=== PATIENT | male | born 1985 | race Caucasian/White ===

== ENCOUNTER 2018-05-10 12:57 | Emergency (ER) | payer SELFPAY ==
[2018-05-10 13:30] VITALS: BP 131/80
--- NOTE | 2018-05-10 14:35 | ER Document Report ---
ED Medical Screen (RME) - General Chief Complaint: Neck Swelling Stated Complaint: JAW/NECK PAIN Time Seen by Provider: 05/10/18 14:31 Notes: 33-year-old male presents to the emergency department sent over from the urgent care for concern for an infection in his jaw. He states it started yesterday with a throbbing headache and then his right lower jaw went numb from midline over. The numbness started at 1800 last night but is slightly improved. He complains of chills and "clamm feeling ". He has full range of motion in his neck and is able to open his jaw all the way. Patient is a 1 pack/day smoker. I have greeted and performed a rapid initial assessment of this patient. A comprehensive ED assessment and evaluation of the patient, analysis of test results and completion of medical decision making process will be conducted by an additional ED providers. - Related Data Allergies/Adverse Reactions: codeine Allergy (Verified 05/10/18 13:05) Penicillins Allergy (Verified 05/10/18 13:05) mycins Allergy (Uncoded 05/10/18 13:05) Physical Exam - Vital signs Vitals: Temp Pulse Resp BP Pulse Ox 98.6 F 81 14 131/80 H 100 05/10/18 13:29 05/10/18 13:29 05/10/18 13:05/10/18 13:29 05/10/18 13:29 - HEENT Head: Other - Mild swelling area over right anterior body of the jaw, no purulent discharge from the gingiva, no evidence of parotid duct discharge, no erythema Course - Vital Signs Vital signs: Temp Pulse Resp BP Pulse Ox 98.6 F 81 14 131/80 H 100 05/10/18 13:29 05/10/18 13:29 05/10/18 13:29 05/10/18 13:29 05/10/18 13:29
[2018-05-10 15:36] LABS: ABSOLUTE EOSINOPHILS # (AUTO) 0.1 10^3/uL (0.0-0.6); ABSOLUTE LYMPHOCYTES (AUTO) 1.7 10^3/uL (0.5-4.7); ABSOLUTE NEUT (AUTO) 8.3 10^3/uL (1.7-8.2); BASOPHILS % (AUTO) 0.4 % (0-2); EOSINOPHILS % (AUTO) 0.7 % (0-6); HEMATOCRIT 49.8 % (37.9-51.0); HEMOGLOBIN 17.3 g/dL (13.5-17.0); LYMPHOCYTES % (AUTO) 15.2 % (13-45); MEAN CORPUSCULAR HEMOGLOBIN 32.7 pg (27.0-33.4); MEAN CORPUSCULAR HGB CONC 34.7 g/dL (32.0-36.0); MEAN CORPUSCULAR VOLUME 95 fl (80-97); MONOCYTES % (AUTO) 8.8 % (3-13); PLATELET COUNT 291 10^3/uL (150-450); RED BLOOD COUNT 5.27 10^6/uL (4.35-5.55); RED CELL DISTRIBUTION WIDTH 13.5 % (11.5-14.0); SEGMENTED NEUTROPHILS % (AUTO) 74.9 % (42-78); TOTAL CELLS COUNTED % (AUTO) 100 %; WHITE BLOOD COUNT 11.1 10^3/uL (4.0-10.5)
[2018-05-10 15:50] LABS: ANION GAP 10 (5-19); BLOOD UREA NITROGEN 11 mg/dL (7-20); CALCIUM 9.8 mg/dL (8.4-10.2); CARBON DIOXIDE 32 mmol/L (22-30); CHLORIDE 101 mmol/L (98-107); GLUCOSE 86 mg/dL (75-110); POTASSIUM 4.4 mmol/L (3.6-5.0); SODIUM 143.1 mmol/L (137-145)
--- NOTE | 2018-05-10 18:18 | RADIOLOGY REPORT (SQ) ---
EXAM DESCRIPTION: CT SOFT TISSUE NECK WITH COMPLETED DATE/TIME: 05/10/2018 6:04 pm REASON FOR STUDY: concern for abscess R mandible COMPARISON: None. TECHNIQUE: Post IV contrasted scanning from skull base through lung apices with review of bone, soft tissue and lung windows. Reconstructed coronal and sagittal MPR images reviewed. All images stored on PACS. All CT scanners at this facility use dose modulation, iterative reconstruction, and/or weight based d osing when appropriate to reduce radiation dose to as low as reasonably achievable (ALARA). [facility]: Dose Right [facility]: CareDose [facility]: Dose Right [facility]: Teradose 4D [facility]: [facility] CONTRAST TYPE AND DOSE: contrast/concentration: Isovue 350.00 mg/ml; Total Contrast Delivered: 75.0 ml; Total Saline Delivered: 55.0 ml RENAL FUNCTION: None required. The patient is less than 50 years old. RADIATION DOSE: CT Rad equipment meets quality standard of care and radiation dose reduction techniq ues were employed. CTDIvol: 12.2 mGy. DLP: 441 mGy-cm. . LIMITATIONS: None. FINDINGS: SKULL BASE: Intact. MAJOR SALIVARY GLANDS: No solid or cystic masses. No inflammatory changes. LYMPHADENOPATHY: No adenopathy. MUCOSAL MASSES OR ASYMMETRY: No mucosal masses or asymmetry. LARYNX/CORDS: No abnormal findings. VASCULAR STRUCTURES: The major vessels are patent. LUNG APICES: Clear. BONES: Intact. THYROID: Normal size. No masses. PARANASAL SINUSES: Clear. OTHER: Soft tissue swelling along the right mandible. No identified focal abscess. IMPRESSION: Soft tissue swelling along the right mandible. No identified abscess. TECHNICAL DOCUMENTATION: JOB ID: [id number] Quality ID # [id number]: Final reports with documentation of one or more dose reduction techniques (e.g., Au tomated exposure control, adjustment of the mA and/or kV according to patient size, use of iterative reconstruction technique) 2010 [employer]- All Rights Reserved Reading location - IP/workstation name: [email or web address]
--- NOTE | 2018-05-10 18:29 | ER Document Report ---
ED Head/Face/Scalp Injury - General Chief Complaint: Neck Swelling Stated Complaint: JAW/NECK PAIN Time Seen by Provider: 05/10/18 18:29 Mode of Arrival: Ambulatory Information source: Patient Notes: HISTORY OF PRESENT ILLNESS: Patient is a 33-year-old male with no pertinent past medical history who presents with pain and swelling to the right lower jaw beginning 2 days ago but acutely worsened today. Location: Right lower jaw Onset: Gradual Provocation: Turning his head, chewing Quality: Aching, throbbing Radiation: None Severity: Currently mild, severe at its worst Timing: Constant Known injury: None Associated symptoms: Denies fevers or chills, no sore throat, no difficulty swallowing REVIEW OF SYSTEMS: CONSTITUTIONAL : Denies fever or chills, no sweats. Denies recent illness. HEENT: Positive for pain and swelling to the right lower jaw. Denies eye, ear, throat, or mouth pain or symptoms. Denies nasal or sinus congestion. CARDIOVASCULAR: Denies chest pain. RESPIRATORY: Denies cough, cold, or chest congestion. Denies shortness of breath, difficulty breathing, or wheezing. GASTROINTESTINAL: Denies abdominal pain. Denies nausea, vomiting, or diarrhea. Denies constipation. GENITOURINARY: Denies difficulty urinating, painful urination, burning, frequency, or blood in urine. MUSCULOSKELETAL: Denies neck or back pain or joint pain or swelling. SKIN: Denies rash or skin lesions. HEMATOLOGIC : Denies easy bruising or bleeding. LYMPHATIC: Denies swollen, enlarged glands. NEUROLOGICAL: Denies altered mental status or loss of consciousness. Denies headache. Denies weakness or paralysis or loss of use of either side. Denies problems with gait or speech. Denies sensory or motor loss. PSYCHIATRIC: Denies anxiety or stress or depression. All other systems reviewed and negative. PHYSICAL EXAMINATION: GENERAL: Well-appearing, well-nourished and in no acute distress. HEAD: Atraumatic, normocephalic. No scalp deformity, depression, or crepitance. EYES: Pupils are 3 mm and equal/round/reactive to light, extraocular movements intact, sclera anicteric, conjunctiva are normal. ENT: Moderate edema to the right lower jaw with tenderness, appears adjacent to the right lower second premolar (#29). Nares patent bilaterally, oropharynx clear without exudates or palatal petechia. Moist mucous membranes. No tonsil hypertrophy. NECK: Normal range of motion, supple without lymphadenopathy. LUNGS: Breath sounds present, equal, and clear to auscultation bilaterally. No wheezes, rales, or rhonchi. HEART: Regular rate and rhythm without murmurs, rubs, or gallops. 2+ peripheral pulses. Normal capillary refill. ABDOMEN: Soft, nontender, nondistended. Normoactive bowel sounds. No guarding, no rebound. No masses appreciated. BACK: Normal contour, no midline tenderness. Rectal exam deferred. GENITAL: Deferred. EXTREMITIES: Normal range of motion, no pitting or edema. No cyanosis. NEUROLOGICAL: No focal neurological deficits. Moves all extremities spontaneously and on command. PSYCH: Normal mood, normal affect. No suicidal thoughts/ideations. No homocidal thoughts/ideations. No hallucinations. SKIN: Warm, dry, normal turgor, no rashes or lesions noted. ASSESSMENT AND PLAN: This patient is a 33-year-old male who presents with pain and swelling to his right lower jaw that is most likely dental in origin. 1. Will obtain blood work, CT scan, and reassess. 2. Will give oral clindamycin and [place]. TRAVEL OUTSIDE OF THE [place] IN LAST 30 DAYS: No - Related Data Allergies/Adverse Reactions: codeine Allergy (Verified 05/10/18 13:05) Penicillins Allergy (Verified 05/10/18 13:05) mycins Allergy (Uncoded 05/10/18 13:05) Past Medical History - General Information source: Patient - Social History Smoking Status: Current Every Day Smoker Chew tobacco use (# tins/day): No Frequency of alcohol use: Social Drug Abuse: Marijuana Lives with: Family Family History: Reviewed & Not Pertinent Patient has suicidal ideation: No Patient has homicidal ideation: No - Past Medical History Cardiac Medical History: Reports: None Pulmonary Medical History: Reports: None EENT Medical History: Reports: None Neurological Medical History: Reports: None Endocrine Medical History: Reports: None Renal/ Medical History: Reports: None. Denies: Hx Peritoneal Dialysis Malignancy Medical History: Reports None GI Medical History: Reports: None Musculoskeletal Medical History: Reports None Skin Medical History: Reports None Psychiatric Medical History: Reports: None Traumatic Medical History: Reports: None Infectious Medical History: Reports: None Surgical Hx: Negative Past Surgical History: Reports: None - Immunizations Immunizations up to date: Yes Hx Diphtheria, Pertussis, Tetanus Vaccination: Yes History of Influenza Vaccine for 01/2017 - 06/2017 Season: Unknown Physical Exam - Vital signs Vitals: Temp Pulse Resp BP Pulse Ox 98.6 F 81 14 131/80 H 100 05/10/18 13:29 05/10/18 13:29 05/10/18 13:29 05/10/18 13:29 05/10/18 13:29 Course - Re-evaluation Re-evalutation: 05/10/18 19:18 CT scan shows no evidence of acute abscess formation, likely represents phlegmon possibly from a dental origin. Given allergies to penicillin, patient will be given oral clindamycin and will be discharged home with return precautions and follow-up. Patient voices both understanding and agreeing with the plan. - Vital Signs Vital signs: Temp Pulse Resp BP Pulse Ox 98.6 F 81 14 131/80 H 100 05/10/18 13:29 05/10/18 13:29 05/10/18 13:29 05/10/18 13:29 05/10/18 13:29 - Laboratory Result Diagrams: 05/10/18 15:19 05/10/18 15:19 Laboratory results interpreted by me: 05/10/18 05/10/18 15:19 15:19 WBC 11.1 H Hgb 17.3 H Absolute Neutrophils 8.3 H Carbon Dioxide 32 H - Diagnostic Test Radiology reviewed: Image reviewed, Reports reviewed Discharge - Discharge Clinical Impression: Right facial swelling Condition: Good Disposition: HOME, SELF-CARE Instructions: Dentist, Dental Infection or Abscess ([facility]) Additional Instructions: You have been evaluated in the Emergency Department for swelling and pain to the right side of your jaw. A CT scan of your face showed no evidence of fluid collection, such as an abscess. You were given both pain medication as well as an antibiotic, take these as instructed. Please follow-up with your primary physician and also a dentist as instructed in 1 week. Return to the Emergency Department if you experience worsening swelling, high fevers uncontrolled with Tylenol, pain uncontrolled by medication, or any other concerning symptoms. Prescriptions: Hydrocodone/Acetaminophen [Hayward 5-325 mg Tablet] 1 tab PO Q6HP PRN #12 tablet PRN Reason: For Pain Clindamycin HCl 300 mg PO Q6 #40 capsule Diclofenac Sodium 75 mg PO BID #30 tablet. Print Language: Greek
[2018-05-10] MEDS ORDERED: CLINDAMYCIN HCL 150 MG CAPSULE PO ONE (18:56)
[2018-05-10] MEDS ORDERED: HYDROCODONE/ACETAMINOPHEN 5-325 MG TABLET PO ONE (18:56)
== END 2018-05-10 19:35 | disposition home or self-care (01) ==
LOC: ER 12:57
DX: R22.0 Localized swelling, mass and lump, head (principal); R22.1 Localized swelling, mass and lump, neck; R68.84 Jaw pain; M54.2 Cervicalgia; F17.200 Nicotine dependence, unspecified, uncomplicated
CPT/HCPCS: 36415; 70491; 80048; 85025; 99284